=== PATIENT | female | born 1995 | race Hispanic/Latino ===

== ENCOUNTER 2017-07-13 01:20 | Emergency (ER) | payer BC ==
[2017-07-13 01:44] VITALS: O2SAT 100
[2017-07-13 02:27] LABS: BASO # 0.1 K/uL (0.0-0.2); BASO % 1.1 % (0.0-2.0); EOS # 0.4 K/uL (0.0-0.7); EOS % 8.9 % (0.0-4.0); HEMOGLOBIN 14.4 g/dL (12.0-16.0); LYMPH % 39.2 % (20.0-40.0); MEAN CELL VOLUME 84.4 fl (81.0-99.0); MEAN CORPUSCULAR HEMOGLOBIN 29.6 pg (27.0-31.0); MEAN CORPUSCULAR HGB CONC 35.1 g/dL (33.0-37.0); MEAN PLATELET VOLUME 7.8 fl (7.2-11.7); MONO # 0.3 K/uL (0.0-0.8); MONO % 5.4 % (0.0-10.0); NEUT # 2.3 K/uL (1.8-7.0); NEUT % 45.4 % (50.0-75.0); NRBC % 0.1 % (0.0-0.0); RBC 4.87 Mil/uL (3.80-5.20); RED CELL DISTRIBUTION WIDTH 13.2 % (11.5-14.5)
[2017-07-13 02:36] LABS: ALB/GLOB RATIO 1.3 (1.0-2.1); ALBUMIN 4.4 g/dL (3.5-5.0); ALT/SGPT 101 U/L (9-52); AST/SGOT 89 U/L (14-36); BLOOD UREA NITROGEN 7 mg/dl (7-17); CALCIUM 8.9 mg/dL (8.4-10.2); GFR AFRICAN-AMERICAN > 60; GFR NON-AFRICAN AMERICAN > 60
--- NOTE | 2017-07-13 03:09 | ED PDOC ---
HPI: Psych/Substance Abuse Time Seen by Provider: 07/13/17 01:26 Chief Complaint (Nursing): Alcohol Ingestion Chief Complaint (Provider): Alcohol Ingestion ED Caveat: Intoxicated History Per: Patient, EMS History/Exam Limitations: intoxication Additional Complaint(s): 21 years old female brought to the ED by [place] [employer] and EMS for evaluation of public intoxication. Patient was agitated and uncooperative prior to arrival and is placed on 4 point restrains. Patient is intoxication caveat. PMD: non provided Full HPI and ROS are limited due to the patient's intoxicated state. Past Medical History Reviewed: Historical Data, Nursing Documentation, Vital Signs Vital Signs: Last Vital Signs Temp 98.0 F 07/13/17 01:42 Pulse 115 H 07/13/17 01:42 Resp 16 07/13/17 01:42 BP Pulse Ox 100 07/13/17 01:42 - Medical History PMH: No Chronic Diseases - Surgical History Surgical History: No Surg Hx - Family History Family History: States: Unknown Family Hx - Social History Current smoker - smoking cessation education provided: No (Unknown) Alcohol: Social Drugs: Other (Unknown) - Allergies Allergies/Adverse Reactions: Allergies Allergy/AdvReac Type Severity Reaction Status Date / Time amoxicillin Allergy RASH Verified 07/13/17 01:44 Review of Systems Review Of Systems: ROS cannot be obtained secondary to pt's inabilty to answer questions. Physical Exam - Reviewed Nursing Documentation Reviewed: Yes Vital Signs Reviewed: Yes - Physical Exam Neurologic/Psych: Positive for: Alert, Other (Slurred speech and agitated) - Laboratory Results Result Diagrams: 07/13/17 02:19 07/13/17 02:19 - ECG O2 Sat by Pulse Oximetry: 100 (RA) Pulse Ox Interpretation: Normal Medical Decision Making Medical Decision Making: Time: 144 Initial Impression: 21 years old female acutely agitated, insetting of alcohol use. Initial Plan: --Alcohol Serum --CMP --Urine drug screen --Urine --Urine dipstick --CBC --Glucose, POC --Ativan 2 mg IM --Haldol 5 mg IM --Urinalysis Time: 0502 Labs reviewed and show no significant abnormality with the exception of elevated blood alcohol level. Patient's mother is bedside requesting to take patient home. Patient is in steady gait with fluent speech, stable for discharge. Scribe Attestation: Documented by Deysi Corrigan, acting as a scribe for Domo Esquivel MD. Provider Scribe Attestation: All medical record entries made by the Scribe were at my direction and personally dictated by me. I have reviewed the chart and agree that the record accurately reflects my personal performance of the history, physical exam, medical decision making, and the department course for this patient. I have also personally directed, reviewed, and agree with the discharge instructions and disposition. Disposition - Clinical Impression Clinical Impression: Alcohol abuse with intoxication - Disposition Disposition: Routine/Home Disposition Time: 05:02 Condition: STABLE Instructions: Effects of Alcohol on Your Health Forms: [employer] (Peruvian)
[2017-07-13 05:29] VITALS: BP 134/82; PULSE 85; RESP 18; TEMP 98.2
== END 2017-07-13 05:00 | disposition home or self-care (01) ==
LOC: H.ER 01:20
DX: F10.129 Alcohol abuse with intoxication, unspecified (principal)
CPT/HCPCS: 80053; 82948; 85025; 96372; 99282; G0480; J1630; J2060